=== PATIENT | male | born 1985 | race Caucasian/White ===

== ENCOUNTER 2025-01-24 00:37 | Emergency (ER) | payer SELFPAY ==
[~2025-01-24] VITALS: Ht 188 cm; Wt 113.4 kg
[~2025-01-24 00:37] MED LIST: AZIT250 PO; CETI5; HYDACE5 PO; LORPSEER24; PROM25 PO; RXCLIN PO; TRAM50 PO
[2025-01-24] MEDS ORDERED: Dexamethasone Sod Phos 10 MG/ML 1ML VIAL IM ONE (03:00)
[2025-01-24] MEDS ORDERED: EpiNEPhrine 1 MG/1 ML 1ML Vial IM ONE (03:00)
[2025-01-24] MEDS ORDERED: DiphenhydrAMINE HCl 50 MG/ML 1ML Vial IM ONE (03:00)
[2025-01-24] MEDS ORDERED: BENADRYL25 MG PO (04:16)
[2025-01-24] MEDS ORDERED: Prednisone20 MG PO (04:16)
[2025-01-24] MEDS ORDERED: EPIPEN0.3 MG/0.3 IM (04:16)
[2025-01-24 04:24] VITALS: BP 148/67
== END 2025-01-24 04:25 | disposition home or self-care (01) ==
LOC: ER 00:37
DX: T63.441A Toxic effect of venom of bees, accidental (unintentional), initial encounter (principal); Z88.5 Allergy status to narcotic agent; Z88.0 Allergy status to penicillin; Z88.2 Allergy status to sulfonamides
CPT/HCPCS: 96372; 99282-25; J0169; J1100; J1200